=== PATIENT | female | born 2000 | race Caucasian/White ===

== ENCOUNTER 2019-06-11 17:02 | Emergency (ER) | payer BC ==
[2019-06-11 17:54] VITALS: BP 111/75
[2019-06-11 19:18] LABS: Influenza B Molecular POSITIVE (Negative)
--- NOTE | 2019-06-11 19:20 | UC ---
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 had the flu last week no sob no vomiting or diarrhea - History of Current Complaint Chief Complaint: UCRespiratory Stated Complaint: COUGH, BODY ACHES, CHILLS Time Seen by Provider: 06/11/19 19:13 Hx Obtained From: Patient Hx Last Menstrual Period: about 2-3 weeks ago Onset/Duration: Gradual Onset, Lasting Days Timing: Constant Severity Initially: Moderate Severity Currently: Moderate Pain Intensity: 7 Pain Scale Used: 0-10 Numeric Character: Cough: Nonproductive Aggravating Factors: Nothing Alleviating Factors: Nothing Associated Signs And Symptoms: Positive: Fever, Chills, Nasal Congestion - Allergies/Home Medications Allergies/Adverse Reactions: Allergies Allergy/AdvReac Type Severity Reaction Status Date / Time No Known Allergies Allergy Verified 06/11/19 17:50 Home Medications: Home Medications Levonorgestrel-Ethin Estradiol [Larissia-28 Tablet] 1 tab DAILY 06/11/19 [ History Confirmed 06/11/19] Oseltamivir CAP* [Tamiflu CAP*] 75 mg PO BID #10 cap 06/11/19 [Rx] PMH/Surg Hx/FS Hx/Imm Hx Previously Healthy: Yes - Surgical History Surgical History: None - Family History Known Family History: Positive: Hypertension - Social History Alcohol Use: None Substance Use Type: None Smoking Status (MU): Never Smoked Tobacco Review of Systems All Other Systems Reviewed And Are Negative: Yes Constitutional: Positive: Fever, Chills, Fatigue Skin: Positive: Negative Eyes: Positive: Negative ENT: Positive: Nasal Discharge, Sinus Congestion Respiratory: Positive: Cough Cardiovascular: Positive: Negative Gastrointestinal: Positive: Negative Genitourinary: Positive: Negative Motor: Positive: Negative Neurovascular: Positive: Negative Musculoskeletal: Positive: Myalgia Neurological/Mental Status: Positive: Headache Psychological: Positive: Negative Physical Exam Triage Information Reviewed: Yes Appearance: Well-Appearing, No Pain Distress, Well-Nourished Vital Signs: Initial Vital Signs Temp 100.2 F 06/11/19 17:51 Pulse 82 06/11/19 17:51 Resp 16 06/11/19 17:51 BP 111/75 06/11/19 17:51 Pulse Ox 98 06/11/19 17:51 Vital Signs Reviewed: Yes Eyes: Positive: Conjunctiva Clear ENT: Positive: Hearing grossly normal, Nasal congestion, Nasal drainage Neck: Positive: Nontender, No Lymphadenopathy Respiratory: Positive: Lungs clear, Normal breath sounds, No respiratory distress, No accessory muscle use Cardiovascular: Positive: RRR, No Murmur Abdomen Description: Positive: Nontender, No Organomegaly Bowel Sounds: Positive: Present Musculoskeletal: Positive: ROM Intact, No Edema Neurological: Positive: Alert Psychological Exam: Normal Skin Exam: Normal Diagnostics - Laboratory Lab Results: influenza B + Respiratory Course/Dx - Differential Dx/Diagnosis Provider Diagnosis: Influenza B Discharge ED - Sign-Out/Discharge Documenting (check all that apply): Patient Departure All imaging exams completed and their final reports reviewed: No Studies - Discharge Plan Condition: Stable Disposition: HOME Prescriptions: Oseltamivir CAP* [Tamiflu CAP*] 75 mg PO BID #10 cap Patient Education Materials: Influenza (ED) Print Language: ERITREAN Forms: *School Release Referrals: No Primary Care Phys,NOPCP [Primary Care Provider] - Additional Instructions: recheck in 5 days if still febrile recheck for worsening symtpoms - Billing Disposition and Condition Condition: STABLE Disposition: Home
== END 2019-06-11 19:38 | disposition home or self-care (01) ==
LOC: UCCORT 17:02
DX: J10.1 Influenza due to other identified influenza virus with other respiratory manifestations (principal)
CPT/HCPCS: 99202; G0463